=== PATIENT | female | born 1970 | race Caucasian/White ===

== ENCOUNTER 2019-02-05 17:34 | Inpatient (IN) | payer MEDICAID, OTHER ==
[~2019-02-05] VITALS: Ht 167.6 cm; Wt 82.2 kg
[~2019-02-05 17:34] MED LIST: AMOX1TAB64 PO; CARB200T PO; PHEN100C PO; PHEN32.4 PO; PRED50TA PO
[2019-02-05] MEDS ORDERED: DIPH,PERTUSS(ACELL),TET VAC/PF 0.5 ML IM-VACC ONE ×2 (18:00→18:44)
[2019-02-05] MEDS ORDERED: SODIUM CHLORIDE FLUSH 10ML SYR IVF ONE (18:00)
[2019-02-05] MEDS ORDERED: LIDOCAINE-MPF 1%, 5ML INFIL ONE (18:00)
[2019-02-05] MEDS ORDERED: CARB200T4 PO (18:03)
[2019-02-05 18:26] LABS: MEAN CORPUSCULAR HEMOGLOBIN 31.1 pg (27.0-34.8); MEAN CORPUSCULAR HGB CONC 33.8 g/dL (32.4-35.8); MEAN CORPUSCULAR VOLUME 92.1 fL (80-100); MEAN PLATELET VOLUME 9.5 fL (7.4-10.4); PLATELET COUNT 299 x10^3/uL (130-400); RED CELL DISTRIBUTION WIDTH 13.4 % (9.6-15.2)
[2019-02-05 18:37] LABS: ALBUMIN 3.4 g/dL (3.4-5.0); ANION GAP 7 mmol/L (5-15); CALCIUM 8.3 mg/dL (8.5-10.1); CHLORIDE 102 mmol/L (98-107)
[2019-02-05 18:45] LABS: ALANINE AMINOTRANSFERASE 43 U/L (12-78); ALKALINE PHOSPHATASE 103 U/L (45-117); BILIRUBIN,TOTAL 0.7 mg/dL (0.2-1.0); CREATININE 0.44 mg/dL (0.55-1.02); TOTAL PROTEIN 6.9 g/dL (6.4-8.2)
[2019-02-05 18:52] LABS: BASOPHILS # (AUTO) 0.03 x10^3/uL (0-0.1); BASOPHILS % (AUTO) 0 % (0-1); EOSINOPHILS # (AUTO) 1.86 x10^3/uL (0-0.4); EOSINOPHILS % (AUTO) 23 % (1-7); LYMPHOCYTES # (AUTO) 2.44 x10^3/uL (1-3.4); LYMPHOCYTES % (AUTO) 30 % (22-44); MD SCAN; MONOCYTES # (AUTO) 0.49 x10^3/uL (0.2-0.8); MONOCYTES % (AUTO) 6 % (2-9); NEUTROPHILS # (AUTO) 3.23 x10^3/uL (1.8-6.8); NEUTROPHILS % (AUTO) 40 % (42-75)
--- NOTE | 2019-02-05 19:04 | NUR ---
Provided bedside report to NEIDA De Santiago. All questions answered. NEIDA De Santiago to assume care of pt.
[2019-02-05] MEDS ORDERED: CEFTRIAXONE PMX 1GM/50ML 50 ML ONE (19:11)
[2019-02-05 19:13] LABS: HCT (SEDRATE) 40.5 % (34.6-47.8)
--- NOTE | 2019-02-05 19:15 | NUR ---
report from anoop guzman MD at bedside. pt to get abx
[2019-02-05] MEDS ORDERED: CEFTRIAXONE PMX 1GM/50ML 50 ML IV ONE (19:30)
[2019-02-05] MEDS ORDERED: morphine SULFATE 10 MG/ML, 1ML IVPush PRN (20:30)
[2019-02-05] MEDS ORDERED: ONDANSETRON ODT 4 MG PO PRN (20:30)
[2019-02-05] MEDS ORDERED: VANCOMYCIN PER PHARMACY MC PRN (20:30)
[2019-02-05] MEDS ORDERED: POLYETHYLENE GLYCOL 17 GM PACKET PO PRN (20:30)
[2019-02-05] MEDS ORDERED: hydrALAzine 20 MG/ML, 1ML IVPush PRN (20:30)
[2019-02-05] MEDS ORDERED: BISACODYL 10 MG SUPP PR PRN (20:30)
[2019-02-05] MEDS ORDERED: ONDANSETRON 2MG/ML, 2ML IVPush PRN (20:30)
[2019-02-05] MEDS ORDERED: VANCOMYCIN PMX 1GM/200ML 200 ML IV ONE (20:30)
[2019-02-05] MEDS ORDERED: PROMETHAZINE 25 MG/ML, 1ML IM PRN (20:30)
[2019-02-05 20:42] VITALS: BP 120/71
[2019-02-05 20:50] LABS: FREE T4 (FREE THYROXINE) 1.06 ng/dL (0.76-1.46); THYROID STIMULATING HORMONE 3.04 mIU/L (0.358-3.740)
[2019-02-05] MEDS ORDERED: PHARMACOKINETIC MONITORING MC PRN (21:00)
[2019-02-05 21:10] LABS: HEMOGLOBIN A1C 5.4 % (4.2-6.3)
[2019-02-05] MEDS ORDERED: PHEN100C PO (21:53)
[2019-02-05] MEDS: ACETAMINOPHEN 325 MG TABLET PO PRN (22:10)
[2019-02-05] MEDS: AMPICILLIN/SULBACTAM 3 GM in SODIUM CHLORIDE 0.9% 100 ML IV SCH (22:10)
[2019-02-05] MEDS: KETOROLAC 30 MG/1 ML IV PRN (22:10)
[2019-02-05] MEDS: PHENOBARBITAL 30 MG TABLET PO SCH (22:56)
[2019-02-05] MEDS: PHENYTOIN 100 MG CAPSULE PO SCH (22:57)
[2019-02-05] MEDS: CARBAMAZEPINE 200 MG TABLET PO SCH (22:57)
[2019-02-05] MEDS: VANCOMYCIN 1,400 MG in SODIUM CHLORIDE 0.9% 250 ML IV SCH (23:19)
[2019-02-06 02:17] VITALS: BP 118/75
[2019-02-06] MEDS: ACETAMINOPHEN 325 MG TABLET PO PRN ×2 (02:25→08:45)
[2019-02-06] MEDS: KETOROLAC 30 MG/1 ML IV PRN ×2 (04:12→13:34)
[2019-02-06] MEDS: AMPICILLIN/SULBACTAM 3 GM in SODIUM CHLORIDE 0.9% 100 ML IV SCH ×4 (04:12→21:54)
[2019-02-06 05:43] LABS: BASOPHILS # (AUTO) 0.02 x10^3/uL (0-0.1); BASOPHILS % (AUTO) 0 % (0-1); EOSINOPHILS # (AUTO) 1.74 x10^3/uL (0-0.4); EOSINOPHILS % (AUTO) 27 % (1-7); LYMPHOCYTES # (AUTO) 1.92 x10^3/uL (1-3.4); LYMPHOCYTES % (AUTO) 29 % (22-44); MD NO; MEAN CORPUSCULAR HEMOGLOBIN 31.3 pg (27.0-34.8); MEAN CORPUSCULAR HGB CONC 33.7 g/dL (32.4-35.8); MEAN CORPUSCULAR VOLUME 92.8 fL (80-100); MEAN PLATELET VOLUME 9.5 fL (7.4-10.4); MONOCYTES # (AUTO) 0.48 x10^3/uL (0.2-0.8); MONOCYTES % (AUTO) 7 % (2-9); NEUTROPHILS # (AUTO) 2.36 x10^3/uL (1.8-6.8); NEUTROPHILS % (AUTO) 36 % (42-75); PLATELET COUNT 260 x10^3/uL (130-400); RED BLOOD COUNT 4.12 x10^6/uL (3.82-5.3); RED CELL DISTRIBUTION WIDTH 13.5 % (9.6-15.2)
[2019-02-06 05:56] LABS: CHLORIDE 110 mmol/L (98-107)
[2019-02-06 06:48] LABS: ALANINE AMINOTRANSFERASE 36 U/L (12-78); ALBUMIN 2.8 g/dL (3.4-5.0); ALKALINE PHOSPHATASE 85 U/L (45-117); ANION GAP 9 mmol/L (5-15); BILIRUBIN,TOTAL 0.3 mg/dL (0.2-1.0); CALCIUM 7.9 mg/dL (8.5-10.1); CHOL/HDL RATIO 3.8; CHOLESTEROL, TOTAL 188 mg/dL (140-239); CREATININE 0.47 mg/dL (0.55-1.02); HDL CHOL % 27 % (28-40); HDL CHOLESTEROL (DIRECT) 50 mg/dL (40-60); LDL CHOLESTEROL,CALCULATED 117 mg/dL (54-169); LDL/HDL RATIO 2.3 (0.5-3.0); TOTAL PROTEIN 6.1 g/dL (6.4-8.2); TRIGLYCERIDES 105 mg/dL (50-200); VLDL CHOLESTEROL 21 mg/dL (0-25)
[2019-02-06 07:36] VITALS: BP 102/61
[2019-02-06] MEDS: CARBAMAZEPINE 200 MG TABLET PO SCH ×2 (08:45→21:52)
[2019-02-06] MEDS: PHENYTOIN 100 MG CAPSULE PO SCH ×2 (08:46→21:53)
[2019-02-06] MEDS ORDERED: PHENYTOIN 100 MG CAPSULE PO SCH (09:00)
[2019-02-06] MEDS ORDERED: CARBAMAZEPINE 200 MG TABLET PO SCH (09:00)
[2019-02-06] MEDS ORDERED: GADOBUTROL 7.5 MMOL/7.5 ML PFS ONE (09:50)
[2019-02-06] MEDS: VANCOMYCIN 1,400 MG in SODIUM CHLORIDE 0.9% 250 ML IV SCH (11:13)
[2019-02-06 14:13] VITALS: BP 104/66
[2019-02-06] MEDS ORDERED: BUPIVACAINE/PF 0.5% ONE (19:08)
[2019-02-06] MEDS ORDERED: FENTANYL PF 100 MCG/2ML ONE ×2 (19:24→19:25)
[2019-02-06] MEDS ORDERED: ONDANSETRON 2MG/ML, 2ML ONE (19:25)
[2019-02-06] MEDS ORDERED: PROPOFOL 10 MG/ML, 20ML ONE (19:25)
[2019-02-06] MEDS ORDERED: DEXAMETHASONE 4 MG/ML, 1ML ONE (19:25)
[2019-02-06] MEDS ORDERED: DIPHENHYDRAMINE 50 MG/ML, 1ML IVPush PRN (19:30)
[2019-02-06] MEDS ORDERED: HYDROmorphone 2 MG/ML, 1ML IVPush PRN (19:30)
[2019-02-06] MEDS ORDERED: PROCHLORPERAZINE 5 MG/ML, 2ML IV PRN (19:30)
[2019-02-06] MEDS ORDERED: FENTANYL PF 100 MCG/2ML IV PRN (19:30)
[2019-02-06] MEDS ORDERED: PROMETHAZINE 25 MG/ML, 1ML IV PRN (19:30)
[2019-02-06] MEDS ORDERED: OXYcodone 5 MG/5 ML ORAL.SOL UDC PO PRN (19:30)
[2019-02-06] MEDS ORDERED: METOPROLOL 1 MG/ML, 5ML IV PRN (19:30)
[2019-02-06] MEDS ORDERED: HALOPERIDOL 5 MG/ML IV PRN (19:30)
[2019-02-06] MEDS ORDERED: LABETALOL 5MG/ML, 20ML IV PRN (19:30)
[2019-02-06] MEDS ORDERED: MEPERIDINE/PF 25MG/0.5ML IVPush PRN (19:30)
[2019-02-06] MEDS ORDERED: hydrALAzine 20 MG/ML, 1ML IV PRN (19:30)
[2019-02-06] MEDS ORDERED: OXYcodone 5 MG/5 ML ORAL.SOL UDC ONE (20:15)
[2019-02-06 21:11] VITALS: BP 101/55
[2019-02-06] MEDS: PHENOBARBITAL 30 MG TABLET PO SCH (21:53)
[2019-02-07] VITALS (8 sets, daily range): BP systolic 91–111; BP diastolic 47–70
[2019-02-07] MEDS: VANCOMYCIN 1,400 MG in SODIUM CHLORIDE 0.9% 250 ML IV SCH ×3 (00:36→13:53)
[2019-02-07] MEDS: OXYcodone/APAP 5/325MG TABLET PO PRN ×2 (02:07→21:24)
[2019-02-07] MEDS: AMPICILLIN/SULBACTAM 3 GM in SODIUM CHLORIDE 0.9% 100 ML IV SCH ×4 (04:17→22:26)
[2019-02-07] MEDS: KETOROLAC 30 MG/1 ML IV PRN ×2 (05:17→13:00)
[2019-02-07] MEDS: CARBAMAZEPINE 200 MG TABLET PO SCH ×2 (09:06→21:23)
[2019-02-07] MEDS: PHENYTOIN 100 MG CAPSULE PO SCH ×2 (09:07→21:23)
[2019-02-07] MEDS: DOCUSATE 100 MG CAPSULE PO PRN (09:08)
[2019-02-07 09:44] LABS: BASOPHILS # (AUTO) 0.04 x10^3/uL (0-0.1); BASOPHILS % (AUTO) 1 % (0-1); EOSINOPHILS % (AUTO) 5 % (1-7); LYMPHOCYTES # (AUTO) 2.41 x10^3/uL (1-3.4); LYMPHOCYTES % (AUTO) 40 % (22-44); MD NO; MEAN CORPUSCULAR HEMOGLOBIN 31.2 pg (27.0-34.8); MEAN CORPUSCULAR HGB CONC 33.6 g/dL (32.4-35.8); MEAN PLATELET VOLUME 9.2 fL (7.4-10.4); MONOCYTES # (AUTO) 0.52 x10^3/uL (0.2-0.8); MONOCYTES % (AUTO) 9 % (2-9); NEUTROPHILS # (AUTO) 2.69 x10^3/uL (1.8-6.8); NEUTROPHILS % (AUTO) 45 % (42-75); PLATELET COUNT 251 x10^3/uL (130-400); RED BLOOD COUNT 3.96 x10^6/uL (3.82-5.3); RED CELL DISTRIBUTION WIDTH 13.3 % (9.6-15.2)
[2019-02-07 09:55] LABS: ANION GAP 6 mmol/L (5-15); CHLORIDE 113 mmol/L (98-107); CREATININE 0.43 mg/dL (0.55-1.02)
[2019-02-07] MEDS ORDERED: SODIUM CHLORIDE 0.9% 1,000 ML IV ONE (14:30)
[2019-02-07] MEDS: PHENOBARBITAL 30 MG TABLET PO SCH (21:00)
[2019-02-08] MEDS: VANCOMYCIN 1,400 MG in SODIUM CHLORIDE 0.9% 250 ML IV SCH ×2 (00:32→13:34)
[2019-02-08 01:09] VITALS: BP 104/63
[2019-02-08] MEDS: AMPICILLIN/SULBACTAM 3 GM in SODIUM CHLORIDE 0.9% 100 ML IV SCH ×3 (04:19→15:47)
[2019-02-08] MEDS: OXYcodone/APAP 5/325MG TABLET PO PRN ×2 (04:35→12:01)
[2019-02-08 07:10] VITALS: BP 114/73
[2019-02-08] MEDS: DOCUSATE 100 MG CAPSULE PO PRN (09:03)
[2019-02-08] MEDS: CARBAMAZEPINE 200 MG TABLET PO SCH (09:03)
[2019-02-08] MEDS: PHENYTOIN 100 MG CAPSULE PO SCH (09:03)
[2019-02-08] MEDS ORDERED: CLIN300C8 PO (12:22)
[2019-02-08 14:00] VITALS: BP 112/74
== END 2019-02-08 17:47 | disposition home or self-care (01) | DRG 603 ==
LOC: ED 19:24 → EDIP 19:25 → 4NOR 20:34
PROVIDERS: ADMIT Internal Medicine; ATTEND Internal Medicine
PROC: 0X9J0ZZ Drainage of Right Hand, Open Approach (ICD-10-PCS; principal; 2019-02-06 18:30)
DX: L03.011 Cellulitis of right finger (principal); L02.511 Cutaneous abscess of right hand; E87.1 Hypo-osmolality and hyponatremia; I96 Gangrene, not elsewhere classified; G40.909 Epilepsy, unspecified, not intractable, without status epilepticus; B95.62 Methicillin resistant Staphylococcus aureus infection as the cause of diseases classified elsewhere; Z88.2 Allergy status to sulfonamides; Z98.891 History of uterine scar from previous surgery; Z90.49 Acquired absence of other specified parts of digestive tract; Z90.89 Acquired absence of other organs; Q82.5 Congenital non-neoplastic nevus
CPT/HCPCS: 36415; 73130; 99285; S0020; 80048; 80053; 80061; 83036; 83735; 84439; 84443; 85025; 85651; 86140; 87040; 87070; 87075; 87077; 87186; 87205; 90471; 90715; 96365; A9585; G0378; J0295; J0696; J1100; J1885; J2405; J2704; J3010; J3370; J2270; J7030; J7050